=== PATIENT | male | born 1995 | race Caucasian/White ===

== ENCOUNTER 2020-02-12 14:19 | Emergency (ER) | payer OTHER ==
[~2020-02-12] VITALS: Ht 167.6 cm; Wt 79.3 kg
[2020-02-12 15:26] VITALS: BP 107/68
== END 2020-02-12 16:47 | disposition home or self-care (01) ==
LOC: ED 14:54
DX: B34.9 Viral infection, unspecified (principal)
CPT/HCPCS: 87081; 87880; 99283